=== PATIENT | female | born 1975 | race Caucasian/White ===

== ENCOUNTER → 2016-10-08 | Outpatient (CLI) | payer BC ==
[~2016-10-08] MED LIST: PRENTAB26 PO
--- NOTE | 2016-10-08 19:36 | DIAGNOSTIC IMAGING REPORT ---
LIMITED ABDOMINAL WALL ULTRASOUND CLINICAL HISTORY: Left-sided abdominal wall mass COMPARISON STUDY: No previous studies for comparison. FINDINGS: Within the lower left lateral abdominal wall, the site of palpable abnormality, there is a 13 x 6 x 23 mm hypoechoic lesion without demonstrable Doppler signal. This has nonspecific ultrasound characteristics. The lesion appears relatively well-circumscribed. IMPRESSION: Nonspecific relatively well-circumscribed 13 x 6 x 23 mm hypoechoic avascular lesion within the left lower lateral abdominal wall. This corresponds to the palpable abnormality Electronically signed by: Balwinder Vieira M.D. 10/08/2016 7:35 PM Dictated Date/Time: 10/08/2016 7:32 PM
== END | disposition home or self-care (01) ==
LOC: C.ULTR 19:09
PROVIDERS: ATTEND Family Medicine
DX: R19.00 Intra-abdominal and pelvic swelling, mass and lump, unspecified site (principal); L98.9 Disorder of the skin and subcutaneous tissue, unspecified